=== PATIENT | male | born 1960 | race Caucasian/White ===

== ENCOUNTER → 2016-07-24 | Outpatient (REF) | payer OTHER ==
[2016-07-24 19:35] LABS: ALBUMIN 4.1 GM/DL (3.2-5.2); ALBUMIN/GLOBULIN RATIO 1.28 (1.00-1.93); ALKALINE PHOSPHATASE 48 U/L (45-117); ALT/SGPT 39 U/L (12-78); ANION GAP 8 MEQ/L (8-16); AST/SGOT 19 U/L (15-37); BILIRUBIN,TOTAL 0.6 MG/DL (0.2-1.0); BLOOD UREA NITROGEN 23 MG/DL (7-18); CALCIUM LEVEL 9.6 MG/DL (8.5-10.1); CARBON DIOXIDE LEVEL 28 MEQ/L (21-32); CHLORIDE LEVEL 103 MEQ/L (98-107); CHOLESTEROL LEVEL 189 MG/DL (<200); CREATININE FOR GFR 1.16 MG/DL (0.70-1.30); GLOMERULAR FILTRATION RATE > 60.0 (>56); GLUCOSE, FASTING 187 MG/DL (70-105); POTASSIUM SERUM 4.4 MEQ/L (3.5-5.1); SODIUM LEVEL 139 MEQ/L (136-145); TOTAL PROTEIN 7.3 GM/DL (6.4-8.2); TRIGLYCERIDES LEVEL 375 MG/DL (<150)
== END ==
LOC: M SFHCCLAY 08:52
PROVIDERS: ATTEND Nurse Practitioner
DX: E11.9 Type 2 diabetes mellitus without complications (principal)

== ENCOUNTER → 2016-10-23 | Outpatient (REF) | payer OTHER ==
[2016-10-23 18:12] LABS: ALBUMIN 4.2 GM/DL (3.2-5.2); ALKALINE PHOSPHATASE 40 U/L (45-117); ALT/SGPT 35 U/L (12-78); ANION GAP 10 MEQ/L (8-16); AST/SGOT 21 U/L (15-37); BILIRUBIN,TOTAL 0.5 MG/DL (0.2-1.0); BLOOD UREA NITROGEN 17 MG/DL (7-18); CALCIUM LEVEL 9.1 MG/DL (8.5-10.1); CARBON DIOXIDE LEVEL 28 MEQ/L (21-32); CHLORIDE LEVEL 103 MEQ/L (98-107); CHOLESTEROL LEVEL 167 MG/DL (<200); GLOMERULAR FILTRATION RATE > 60.0 (>56); GLUCOSE, FASTING 133 MG/DL (70-105); POTASSIUM SERUM 4.3 MEQ/L (3.5-5.1); SODIUM LEVEL 141 MEQ/L (136-145); TOTAL PROTEIN 7.2 GM/DL (6.4-8.2); TRIGLYCERIDES LEVEL 311 MG/DL (<150)
== END ==
LOC: M SFHCCLAY 08:37
PROVIDERS: ATTEND Nurse Practitioner
DX: E11.9 Type 2 diabetes mellitus without complications (principal)

== ENCOUNTER → 2017-02-11 | Outpatient (REF) | payer OTHER ==
[2017-02-11 17:25] LABS: ALBUMIN/GLOBULIN RATIO 1.38 (1.00-1.93); ALKALINE PHOSPHATASE 45 U/L (45-117); ALT/SGPT 48 U/L (12-78); ANION GAP 9 MEQ/L (8-16); AST/SGOT 27 U/L (15-37); BILIRUBIN,TOTAL 0.5 MG/DL (0.2-1.0); BLOOD UREA NITROGEN 14 MG/DL (7-18); CARBON DIOXIDE LEVEL 27 MEQ/L (21-32); CHLORIDE LEVEL 105 MEQ/L (98-107); CREATININE FOR GFR 0.85 MG/DL (0.70-1.30); GLOMERULAR FILTRATION RATE > 60.0 (>56); GLUCOSE, FASTING 116 MG/DL (70-105); POTASSIUM SERUM 3.9 MEQ/L (3.5-5.1); SODIUM LEVEL 141 MEQ/L (136-145); TOTAL PROTEIN 6.9 GM/DL (6.4-8.2)
== END ==
LOC: M SFHCCLAY 10:58
PROVIDERS: ATTEND Nurse Practitioner
DX: M54.32 Sciatica, left side (principal)

== ENCOUNTER → 2017-05-19 | Outpatient (REF) | payer OTHER | LOC: M SFHCCLAY 10:46 | PROVIDERS: ATTEND Family Medicine | DX: E11.9 Type 2 diabetes mellitus without complications (principal) ==

== ENCOUNTER → 2019-03-01 | Outpatient (REF) | payer OTHER ==
[2019-03-02 11:58] LABS: HEMOGLOBIN 14.8 g/dl (13.5-17.5); MEAN CORPUSCULAR HEMOGLOBIN 27.9 pg (27.0-33.0); MEAN CORPUSCULAR HGB CONC 34.4 g/dl (32.0-36.5); MEAN CORPUSCULAR VOLUME 81.1 fl (80.0-96.0); PLATELET COUNT, AUTOMATED 154 10^3/uL (150-450)
[2019-03-02 12:26] LABS: ALBUMIN 3.9 GM/DL (3.2-5.2); BILIRUBIN,TOTAL 0.4 MG/DL (0.2-1.0); CALCIUM LEVEL 9.8 MG/DL (8.8-10.2); CREATININE FOR GFR 1.51 MG/DL (0.70-1.30); FREE T4 1.13 NG/DL (0.76-1.46); GLOMERULAR FILTRATION RATE 50.4 (>49); THYROID STIMULATING HORMONE 1.46 uIU/ML (0.358-3.740); TOTAL PROTEIN 7.3 GM/DL (6.4-8.2)
[2019-03-02 13:07] LABS: MALB URINE SIEMENS 67.8 MG/L; MAU/CREAT RATIO 32.9 MCG/MG (0.0-30.0)
[2019-03-02 14:03] LABS: HEMOGLOBIN A1c 13.5 %
== END ==
LOC: M SFHCCLAY 14:03
PROVIDERS: ATTEND Family Medicine
DX: R53.81 Other malaise (principal); R63.4 Abnormal weight loss; E11.9 Type 2 diabetes mellitus without complications; I10 Essential (primary) hypertension; E78.5 Hyperlipidemia, unspecified

== ENCOUNTER → 2019-03-01 | Outpatient (CLI) | payer OTHER ==
--- NOTE | 2019-03-02 08:05 | REP ---
Clinical: Hypertension. Weight loss. Comparison: None . Technique: PA and lateral. Findings: The mediastinum and cardiac silhouette are normal. The lung vincent are clear and without acute consolidation, effusion, or pneumothorax. The skeletal structures are intact and normal. Impression: 1. No acute cardiopulmonary process. Electronically Signed by Nilson Stapleton MD 03/02/2019 07:56 A
== END ==
LOC: M CLY 14:25
PROVIDERS: ATTEND Family Medicine
DX: R53.81 Other malaise (principal); I10 Essential (primary) hypertension; R63.4 Abnormal weight loss

== ENCOUNTER → 2019-06-14 | Outpatient (REF) | payer OTHER ==
[2019-06-14 12:02] LABS: BLOOD UREA NITROGEN 27 MG/DL (7-18); CALCIUM LEVEL 9.3 MG/DL (8.8-10.2); CARBON DIOXIDE LEVEL 26 MEQ/L (21-32); CHLORIDE LEVEL 100 MEQ/L (98-107); CREATININE FOR GFR 1.25 MG/DL (0.70-1.30); GLOMERULAR FILTRATION RATE > 60.0 (>49); GLUCOSE, FASTING 334 MG/DL (70-100); POTASSIUM SERUM 5.1 MEQ/L (3.5-5.1); SODIUM LEVEL 134 MEQ/L (136-145)
== END ==
LOC: M SFHCCLAY 09:14
PROVIDERS: ATTEND Family Medicine
DX: E11.9 Type 2 diabetes mellitus without complications (principal)

== ENCOUNTER → 2019-07-03 | Outpatient (CLI) | payer OTHER ==
[2019-07-03 11:56] LABS: BLOOD UREA NITROGEN 24 MG/DL (7-18); CREATININE FOR GFR 1.27 MG/DL (0.70-1.30); GLOMERULAR FILTRATION RATE > 60.0 (>49)
== END ==
LOC: M LAB 10:12
PROVIDERS: ATTEND Specialist
DX: H90.41 Sensorineural hearing loss, unilateral, right ear, with unrestricted hearing on the contralateral side (principal)

== ENCOUNTER → 2019-07-07 | Outpatient (CLI) | payer OTHER ==
[~2019-07-07] MED LIST: PROHANCE 279.3MG/ML 15ML VIAL (A9576) As Ordered ONE; PROHANCE 279.3MG/ML 5ML VIAL (A9576) As Ordered ONE
--- NOTE | 2019-07-07 13:09 | REP ---
MRI brain/IACs: 07/07/2019. Indication: Hearing loss. Comparison: None. Technique: Multiplanar short and long TR sequences of the brain/IACs were performed without IV Gadolinium. Findings: There are no areas of restricted diffusion. There is no intracranial mass effect or hydrocephalous. The large intracranial flow voids are unremarkable. No significant signal abnormalities are present within the brainstem/brain parenchyma. The cerebellopontine/medullary angles and IACs are unremarkable. The membranous labyrinth are unremarkable bilaterally. Impression: Unremarkable unenhanced MRI of the brain and IACs. Electronically Signed by Juan Ramon Farrell DO 07/07/2019 01:01 P
== END ==
LOC: M RAD 08:38
PROVIDERS: ATTEND Specialist
DX: H90.41 Sensorineural hearing loss, unilateral, right ear, with unrestricted hearing on the contralateral side (principal)

== ENCOUNTER → 2019-10-13 | Outpatient (REF) | payer OTHER ==
[2019-10-13 16:21] LABS: ALT/SGPT 31 U/L (12-78); BILIRUBIN,TOTAL 0.7 MG/DL (0.2-1.0); BLOOD UREA NITROGEN 20 MG/DL (7-18); CALCIUM LEVEL 9.6 MG/DL (8.8-10.2); CARBON DIOXIDE LEVEL 26 MEQ/L (21-32); CHLORIDE LEVEL 102 MEQ/L (98-107); CHOLESTEROL LEVEL 162 MG/DL (<200); CHOLESTEROL RISK RATIO 5.225 (<5); CREATININE FOR GFR 1.04 MG/DL (0.70-1.30); GLOMERULAR FILTRATION RATE > 60.0 (>49); GLUCOSE, FASTING 166 MG/DL (70-100); HDL CHOLESTEROL 31 MG/DL (>40); LDL CHOLESTEROL 79 MG/DL (<100); NON-HDL-C 131 MG/DL; POTASSIUM SERUM 4.3 MEQ/L (3.5-5.1); SODIUM LEVEL 136 MEQ/L (136-145); TOTAL PROTEIN 7.4 GM/DL (6.4-8.2); TRIGLYCERIDES LEVEL 258 MG/DL (<150)
[2019-10-13 16:24] LABS: HEMOGLOBIN A1c 10.9 %
[2019-10-13 16:41] LABS: MAU/CREAT RATIO 118.4 MCG/MG (0.0-30.0)
== END ==
LOC: M SFHCCLAY 12:17
PROVIDERS: ATTEND Family Medicine
DX: I10 Essential (primary) hypertension (principal); E11.9 Type 2 diabetes mellitus without complications; E78.5 Hyperlipidemia, unspecified

== ENCOUNTER → 2022-02-17 | Outpatient (REF) | payer OTHER ==
[2022-02-17 19:13] LABS: APPEARANCE, URINE MANUAL CLEAR (CLEAR); COLOR, URINE MANUAL YELLOW (YELLOW); PROTEIN, URINE MANUAL 2+ mg/dL (NEGATIVE)
[2022-02-17 19:14] LABS: BILIRUBIN, URINE MANUAL NEGATIVE (NEGATIVE); BLOOD URINE MANUAL TRACE (NEGATIVE); GLUCOSE, URINE (UA) MANUAL 4+(1000 MG/DL) mg/dL (NEGATIVE); KETONE, URINE MANUAL NEGATIVE (NEGATIVE); LEUKOCYTE ESTERASE, URINE MAN NEGATIVE (NEGATIVE); NITRITE, URINE MANUAL NEGATIVE (NEGATIVE); UROBILINOGEN, URINE MANUAL NORMAL (NORMAL)
[2022-02-17 19:29] LABS: HEMOGLOBIN A1c 8.6 %
[2022-02-17 19:49] LABS: ALBUMIN 3.8 GM/DL (3.2-5.2); ALT/SGPT 31 U/L (12-78); BILIRUBIN,TOTAL 0.4 MG/DL (0.2-1.0); BLOOD UREA NITROGEN 16 MG/DL (7-18); CALCIUM LEVEL 9.4 MG/DL (8.8-10.2); CARBON DIOXIDE LEVEL 23 MEQ/L (21-32); CHLORIDE LEVEL 106 MEQ/L (98-107); CHOLESTEROL LEVEL 164 MG/DL (<200); CHOLESTEROL RISK RATIO 4.685 (<5); CREATININE FOR GFR 1.02 MG/DL (0.70-1.30); GLOMERULAR FILTRATION RATE > 60.0 (>49); GLUCOSE, FASTING 170 MG/DL (70-100); HDL CHOLESTEROL 35 MG/DL (>40); LDL CHOLESTEROL 84 MG/DL (<100); NON-HDL-C 129 MG/DL; POTASSIUM SERUM 4.5 MEQ/L (3.5-5.1); SODIUM LEVEL 137 MEQ/L (136-145); TRIGLYCERIDES LEVEL 224 MG/DL (<150)
[2022-02-17 19:54] LABS: BACTERIA, URINE NONE SEEN; RBC, URINE 0-1 /hpf (0-3); SQUAMOUS EPITHELIAL CELL URINE SMALL AMOUNT /hpf (SMALL AMT); WBC, URINE 0-1 /hpf (0-3)
[2022-02-17 19:55] LABS: HYALINE CAST, URINE NONE SEEN /lpf (0-1); MUCUS, URINE SMALL AMOUNT (NEGATIVE)
[2022-02-17 20:15] LABS: CREATININE, URINE 87.8 MG/DL; MAU/CREAT RATIO 1020.5 MCG/MG (0.0-30.0)
== END ==
LOC: M SFHCCLAY 10:04
PROVIDERS: ATTEND Family Medicine
DX: E11.65 Type 2 diabetes mellitus with hyperglycemia (principal); I10 Essential (primary) hypertension

== ENCOUNTER → 2022-05-20 | Outpatient (REF) | payer OTHER ==
[2022-05-20 19:51] LABS: MAU/CREAT RATIO 156.3 MCG/MG (0.0-30.0)
[2022-05-20 19:55] LABS: BLOOD UREA NITROGEN 28 MG/DL (9-23); CALCIUM LEVEL 10.4 MG/DL (8.3-10.6); CARBON DIOXIDE LEVEL 27 MMOL/L (20-31); CHLORIDE LEVEL 101 MMOL/L (98-107); CREATININE FOR GFR 1.07 MG/DL (0.70-1.30); GLOMERULAR FILTRATION RATE > 60.0 (>49); GLUCOSE, FASTING 148 MG/DL (74-106); POTASSIUM SERUM 4.4 MMOL/L (3.5-5.1); SODIUM LEVEL 139 MMOL/L (136-145)
[2022-05-20 21:23] LABS: HEMOGLOBIN A1c 9.2 % (4.0-6.0)
== END ==
LOC: M SFHCCLAY 10:22
PROVIDERS: ATTEND Family Medicine
DX: E11.65 Type 2 diabetes mellitus with hyperglycemia (principal); I10 Essential (primary) hypertension

== ENCOUNTER → 2022-09-22 | Outpatient (REF) | payer OTHER ==
[2022-09-23 13:05] LABS: HEMOGLOBIN A1c 6.7 % (4.0-6.0)
== END ==
LOC: M SFHCCLAY 16:12
PROVIDERS: ATTEND Family Medicine
DX: E11.65 Type 2 diabetes mellitus with hyperglycemia (principal)

== ENCOUNTER → 2023-01-20 | Outpatient (REF) | payer OTHER ==
[2023-01-20 17:54] LABS: HEMOGLOBIN A1c 6.7 % (4.0-6.0)
[2023-01-20 17:57] LABS: BLOOD UREA NITROGEN 14 MG/DL (9-23); CALCIUM LEVEL 9.7 MG/DL (8.3-10.6); CARBON DIOXIDE LEVEL 25 MMOL/L (20-31); CHLORIDE LEVEL 103 MMOL/L (98-107); CREATININE FOR GFR 0.87 MG/DL (0.70-1.30); GLOMERULAR FILTRATION RATE > 60.0 (>49); GLUCOSE, FASTING 76 MG/DL (74-106); POTASSIUM SERUM 4.5 MMOL/L (3.5-5.1); SODIUM LEVEL 139 MMOL/L (136-145)
== END ==
LOC: M SFHCCLAY 11:33
PROVIDERS: ATTEND Family Medicine
DX: E11.9 Type 2 diabetes mellitus without complications (principal); Z79.4 Long term (current) use of insulin

== ENCOUNTER → 2023-05-25 | Outpatient (REF) | payer OTHER ==
[2023-05-25 18:02] LABS: ALBUMIN 3.6 G/DL (3.2-5.2); ALKALINE PHOSPHATASE 64 U/L (46-116); ALT/SGPT 31 U/L (7.0-40); AST/SGOT 20 U/L (<34); BILIRUBIN,TOTAL 0.5 MG/DL (0.3-1.2); BLOOD UREA NITROGEN 19 MG/DL (9-23); CALCIUM LEVEL 9.3 MG/DL (8.3-10.6); CARBON DIOXIDE LEVEL 27 MMOL/L (20-31); CHLORIDE LEVEL 103 MMOL/L (98-107); CREATININE FOR GFR 0.87 MG/DL (0.70-1.30); GLOMERULAR FILTRATION RATE > 60.0 (>49); GLUCOSE, FASTING 144 MG/DL (74-106); POTASSIUM SERUM 4.7 MMOL/L (3.5-5.1); SODIUM LEVEL 139 MMOL/L (136-145); TOTAL PROTEIN 6.7 G/DL (5.7-8.2)
[2023-05-25 18:28] LABS: HEMOGLOBIN A1c 7.6 % (4.0-6.0)
== END ==
LOC: M SFHCCLAY 09:42
PROVIDERS: ATTEND Family Medicine
DX: Z79.4 Long term (current) use of insulin (principal); I10 Essential (primary) hypertension; E11.65 Type 2 diabetes mellitus with hyperglycemia

== ENCOUNTER → 2023-06-22 | Outpatient (CLI) | payer OTHER | LOC: M CLY 08:58 | PROVIDERS: ATTEND Physician Assistant | DX: R06.01 Orthopnea (principal); Z95.1 Presence of aortocoronary bypass graft; R91.8 Other nonspecific abnormal finding of lung field ==

== ENCOUNTER → 2023-07-07 | Outpatient (CLI) | payer OTHER | LOC: M CLY 15:23 | PROVIDERS: ATTEND Family Medicine | DX: Z95.1 Presence of aortocoronary bypass graft (principal) ==

== ENCOUNTER → 2023-11-16 | Outpatient (REF) | payer OTHER | LOC: M SFHCCLAY 10:02 | PROVIDERS: ATTEND Family Medicine | DX: E11.9 Type 2 diabetes mellitus without complications (principal) ==

== ENCOUNTER → 2024-03-21 | Outpatient (REF) | payer SELFPAY, OTHER ==
[2024-03-21 19:36] LABS: HEMOGLOBIN A1c 9.3 % (4.0-6.0)
[2024-03-21 19:51] LABS: ALKALINE PHOSPHATASE 69 U/L (46-116); ALT/SGPT 42 U/L (7.0-40); AST/SGOT 26 U/L (<34); BILIRUBIN,TOTAL 0.9 MG/DL (0.3-1.2); BLOOD UREA NITROGEN 27 MG/DL (9-23); CALCIUM LEVEL 10.1 MG/DL (8.3-10.6); CARBON DIOXIDE LEVEL 28 MMOL/L (20-31); CHLORIDE LEVEL 106 MMOL/L (98-107); CREATININE FOR GFR 1.03 MG/DL (0.70-1.30); GLOMERULAR FILTRATION RATE > 60.0 (>49); GLUCOSE, FASTING 115 MG/DL (74-106); POTASSIUM SERUM 4.5 MMOL/L (3.5-5.1); SODIUM LEVEL 139 MMOL/L (136-145); TOTAL PROTEIN 7.2 G/DL (5.7-8.2)
== END ==
LOC: M SFHCCLAY 12:25
PROVIDERS: ATTEND Family Medicine
DX: I10 Essential (primary) hypertension (principal); E11.65 Type 2 diabetes mellitus with hyperglycemia

== ENCOUNTER 2024-04-15 15:57 | Inpatient (IN) | payer MEDICARE, OTHER ==
[~2024-04-15] VITALS: Ht 177.8 cm; Wt 100.7 kg
[2024-04-15] MEDS ORDERED: METO1TAB7 PO (16:18)
[2024-04-15] MEDS ORDERED: INDA1.253 PO (16:18)
[2024-04-15] MEDS ORDERED: METF-1191 PO (16:18)
[2024-04-15] MEDS ORDERED: BASA100I SC (16:18)
[2024-04-15] MEDS ORDERED: ONDA-282 SL (16:18)
[2024-04-15] MEDS ORDERED: FLOM0.4C39 PO (16:18)
[2024-04-15] MEDS ORDERED: HYDR-4517 PO (16:18)
[2024-04-15] MEDS ORDERED: ATOR80TA59 PO (16:18)
[2024-04-15] MEDS ORDERED: ALLO300T2 PO (16:18)
[2024-04-15] MEDS ORDERED: BENA40TA84 PO (16:18)
[2024-04-15 17:14] LABS: BASO % 0.5 % (0.0-1.0); EOS # 0.1 10^3/uL (0.0-0.5); EOS % 0.8 % (0.0-3.0); HEMOGLOBIN 15.8 g/dl (13.5-17.5); LYMPH % 15.9 % (24.0-44.0); MEAN CORPUSCULAR HEMOGLOBIN 28.7 pg (27.0-33.0); MEAN CORPUSCULAR HGB CONC 35.1 g/dl (32.0-36.5); MEAN CORPUSCULAR VOLUME 81.8 fl (80.0-96.0); MONO # 0.6 10^3/uL (0.0-0.8); MONO % 10.2 % (2.0-8.0); NEUTROPHILS # 4.5 10^3/uL (1.5-8.5); NEUTROPHILS % 72.1 % (36.0-66.0); PLATELET COUNT, AUTOMATED 197 10^3/uL (150-450); WHITE BLOOD COUNT 6.2 10^3/uL (4.0-10.0)
[2024-04-15] MEDS: NS 1,000 ML IV ONE ×2 (17:50→21:00)
[2024-04-15] MEDS: ONDANSETRON 4MG 2ML VIAL IV ONE (17:50)
[2024-04-15 17:52] LABS: ALBUMIN 3.9 G/DL (3.2-5.2); BILIRUBIN,DIRECT 0.4 MG/DL (<0.4); BILIRUBIN,TOTAL 1.2 MG/DL (0.3-1.2); TOTAL PROTEIN 7.2 G/DL (5.7-8.2)
[2024-04-15] MEDS: MORPHINE 4 MG/ML 1ML VIAL IV ONE (17:59)
[2024-04-15] MEDS: LIDOCAINE 2% 5ML JELLY UROJET TOP ONE (18:00)
[2024-04-15] MEDS ORDERED: HYDROMORPHONE HCL 0.5 MG/ 0.5 ML SYRINGE IV PRN (20:35)
[2024-04-15] MEDS: cefTRIAXone SOD 1 GM in DEXTROSE 5% (D5W) ADV/MINI-BAG 50 ML IV ONE (20:59)
[2024-04-15] MEDS ORDERED: GLUCAGON INJ 1MG VIAL SC PRN (22:00)
[2024-04-15] MEDS ORDERED: GLUCOSE 4 GM CHEW PO PRN (22:00)
[2024-04-15] MEDS ORDERED: ACETAMINOPHEN 325 MG TAB PO PRN (22:00)
[2024-04-15] MEDS ORDERED: ONDANSETRON 4MG 2ML VIAL IV PRN (22:00)
[2024-04-15] MEDS ORDERED: MAALOX 30 ML SUSP *UDC PO PRN (22:00)
[2024-04-15] MEDS ORDERED: DEXTROSE 50% 50ML SYRINGE IV PRN (22:00)
[2024-04-15] MEDS ORDERED: MORPHINE 2 MG/ML 1ML VIAL IV PRN (22:00)
[2024-04-15] MEDS ORDERED: MOM 30ML SUSPENSION UDC PO PRN (22:00)
[2024-04-15 22:50] VITALS: BP 144/68; TEMP 97.7; O2SAT 93
[2024-04-15] MEDS: NS 1,000 ML IV SCH (23:18)
[2024-04-16 00:18] LABS: INR 1.09; PARTIAL THROMBOPLASTIN TIME 24.8 SECONDS (24.8-34.2); PROTHROMBIN TIME 13.8 SECONDS (12.5-14.5)
[2024-04-16] MEDS ORDERED: ATOR80TA59 PO (00:19)
[2024-04-16] MEDS ORDERED: AMLO1TAB25 PO (00:19)
[2024-04-16] MEDS ORDERED: METF500T13 PO (00:19)
[2024-04-16] MEDS ORDERED: HOME MED LIST COMPLETE! XX SCH (00:20)
[2024-04-16 00:37] LABS: PROCALCITONIN 0.05 ng/ml
[2024-04-16 00:39] LABS: BLOOD UREA NITROGEN 23 MG/DL (9-23); CALCIUM LEVEL 8.5 MG/DL (8.3-10.6); CARBON DIOXIDE LEVEL 27 MMOL/L (20-31); CHLORIDE LEVEL 103 MMOL/L (98-107); CREATININE FOR GFR 1.13 MG/DL (0.70-1.30); GLOMERULAR FILTRATION RATE > 60.0 (>49); GLUCOSE, FASTING 161 MG/DL (74-106); POTASSIUM SERUM 3.5 MMOL/L (3.5-5.1); SODIUM LEVEL 138 MMOL/L (136-145); URIC ACID 7.4 MG/DL (3.7-9.2)
[2024-04-16] MEDS: INSULIN LISPRO (NovoLOG) PER UNIT SC SCH (01:29)
[2024-04-16] MEDS: MAGNESIUM OXIDE 400MG TAB (MAG-OX) PO SCH (01:32)
[2024-04-16] MEDS: KETOROLAC 30 MG/ML 1ML VIAL IV PRN (01:48)
[2024-04-16 04:00] VITALS: BP 120/78; TEMP 97.7; O2SAT 94
[2024-04-16 05:11] LABS: HEMATOCRIT 38.1 % (42.0-52.0); MEAN CORPUSCULAR HEMOGLOBIN 28.7 pg (27.0-33.0); MEAN CORPUSCULAR HGB CONC 34.4 g/dl (32.0-36.5); MEAN CORPUSCULAR VOLUME 83.4 fl (80.0-96.0); PLATELET COUNT, AUTOMATED 161 10^3/uL (150-450); RED BLOOD COUNT 4.57 10^6/uL (4.30-6.10); WHITE BLOOD COUNT 6.7 10^3/uL (4.0-10.0)
[2024-04-16 05:12] LABS: HEMOGLOBIN 13.1 g/dl (13.5-17.5)
[2024-04-16 05:47] LABS: ALBUMIN 3.1 G/DL (3.2-5.2); BILIRUBIN,TOTAL 0.8 MG/DL (0.3-1.2); CALCIUM LEVEL 8.5 MG/DL (8.3-10.6); CREATININE FOR GFR 1.36 MG/DL (0.70-1.30); MAGNESIUM LEVEL 1.6 MG/DL (1.8-2.4); POTASSIUM SERUM 3.5 MMOL/L (3.5-5.1); TOTAL PROTEIN 5.8 G/DL (5.7-8.2)
[2024-04-16] MEDS: TAMSULOSIN 0.4 MG CAP PO SCH (08:00)
[2024-04-16] MEDS: DOCUSATE SODIUM 100MG CAPSULE PO SCH (08:01)
[2024-04-16] MEDS ORDERED: ONDANSETRON 4MG 2ML VIAL IV PRN (09:00)
[2024-04-16] MEDS ORDERED: MEPERIDINE 25 MG/ML 1ML VIAL IV PRN (09:00)
[2024-04-16] MEDS ORDERED: HYDROMORPHONE HCL 0.5 MG/ 0.5 ML SYRINGE IV PRN (09:00)
[2024-04-16] MEDS ORDERED: fentaNYL 100 MCG/2 ML INJECTION IV PRN (09:00)
[2024-04-16] MEDS ORDERED: oxyCODONE 5MG TAB PO PRN (09:00)
[2024-04-16] MEDS ORDERED: LIDOCAINE 2% 100MG/5ML SDV (FOR ANES.) As Ordered ONE (10:16)
[2024-04-16] MEDS ORDERED: ONDANSETRON 4MG 2ML VIAL As Ordered ONE (10:16)
[2024-04-16] MEDS ORDERED: MIDAZOLAM INJ 2MG/2ML VIAL As Ordered ONE (10:16)
[2024-04-16] MEDS ORDERED: fentaNYL 100 MCG/2 ML INJECTION As Ordered ONE (10:16)
[2024-04-16] MEDS ORDERED: dexmedeTOMIDine (4MCG/ML)200MCG/50ML BTL (PRECEDEX) As Ordered ONE (10:16)
[2024-04-16] MEDS ORDERED: ACETAMINOPHEN 1000MG 100ML IV BAG As Ordered ONE (10:16)
[2024-04-16] MEDS ORDERED: propofoL 200 MG/20 ML VIAL As Ordered ONE (10:16)
[2024-04-16] MEDS ORDERED: KETOROLAC 60MG 2ML VIAL As Ordered ONE (10:16)
[2024-04-16] MEDS: LIDOCAINE 2% 5ML JELLY UROJET As Ordered ONE (10:18)
[2024-04-16] MEDS: ISOVUE-300 61% 100ML VIAL As Ordered ONE (10:18)
[2024-04-16 11:00] VITALS: BP 119/72; TEMP 97.7; O2SAT 90
[2024-04-16 11:30] VITALS: BP 150/88; TEMP 98.1; O2SAT 91
[2024-04-16 12:00] VITALS: BP 132/84; TEMP 97.7; O2SAT 90
[2024-04-16 12:38] VITALS: BP 132/82
[2024-04-16] MEDS: allopurinoL 300 MG TAB PO SCH (12:38)
[2024-04-16] MEDS: METOPROLOL SUCC (TopROL XL) 50MG **XL** TAB PO SCH (12:38)
[2024-04-16 13:00] VITALS: BP 135/81; TEMP 97.7; O2SAT 90
[2024-04-16] MEDS ORDERED: cefTRIAXone SOD 1 GM in DEXTROSE 5% (D5W) ADV/MINI-BAG 50 ML IV SCH (21:00)
[2024-04-16] MEDS ORDERED: ATORVASTATIN 20 MG TAB PO SCH (21:00)
== END 2024-04-16 14:45 | disposition home or self-care (01) | DRG 661 ==
LOC: M ED 15:57 → M ED INP 21:59 → M MSPAV 22:54
PROVIDERS: ADMIT Internal Medicine; ATTEND Internal Medicine Nephrology
PROC: 0T768DZ Dilation of Right Ureter with Intraluminal Device, Via Natural or Artificial Opening Endoscopic (ICD-10-PCS; principal; 2024-04-16 09:15)
DX: N13.6 Pyonephrosis (principal); N40.0 Benign prostatic hyperplasia without lower urinary tract symptoms; I25.10 Atherosclerotic heart disease of native coronary artery without angina pectoris; I25.2 Old myocardial infarction; I10 Essential (primary) hypertension; E11.9 Type 2 diabetes mellitus without complications; M10.9 Gout, unspecified; H81.01 Meniere's disease, right ear; E83.42 Hypomagnesemia; M48.02 Spinal stenosis, cervical region; I70.0 Atherosclerosis of aorta; E78.5 Hyperlipidemia, unspecified; M48.061 Spinal stenosis, lumbar region without neurogenic claudication; K57.90 Diverticulosis of intestine, part unspecified, without perforation or abscess without bleeding; K75.3 Granulomatous hepatitis, not elsewhere classified; Z98.41 Cataract extraction status, right eye; Z98.42 Cataract extraction status, left eye; Z95.1 Presence of aortocoronary bypass graft

== ENCOUNTER → 2024-05-04 | Outpatient (CLI) | payer MEDICARE, OTHER ==
[~2024-05-04] MED LIST changes: +ALLO300T2 PO; +AMLO1TAB25 PO; +ASPI325T42 PO; +ATOR80TA59 PO; +BASA100I SC; +BAYE81TA7 PO; +BENA-8 PO; +BENA40TA84 PO; +CHLO125TA PO; +FLOM0.4C39 PO; +HYDR-4517 PO; +INDA1.253 PO; +METF-1191 PO; +METF10004 PO; +METF500T13 PO; +METO1TAB7 PO; +ONDA-282 SL; -PROHANCE 279.3MG/ML 15ML VIAL (A9576) As Ordered ONE; -PROHANCE 279.3MG/ML 5ML VIAL (A9576) As Ordered ONE; +THERTAB52 PO
[2024-05-04 18:07] LABS: APPEARANCE, URINE HAZY (CLEAR); BACTERIA, URINE AUTO NEGATIVE (NEGATIVE); BILIRUBIN, URINE AUTO NEGATIVE (NEGATIVE); BLOOD, URINE BLOOD 3+ (NEGATIVE); COLOR, URINE YELLOW (YELLOW); GLUCOSE, URINE (UA) AUTO 1+ mg/dL (NEGATIVE); KETONE, URINE AUTO NEGATIVE (NEGATIVE); LEUKOCYTE ESTERASE, URINE AUTO 3+ (NEGATIVE); MUCUS, URINE SMALL (NEGATIVE); NITRITE, URINE AUTO NEGATIVE (NEGATIVE); PROTEIN, URINE AUTO 2+ mg/dL (NEGATIVE); RBC, URINE AUTO TNTC /HPF (0-3); SPECIFIC GRAVITY URINE AUTO 1.016 (1.002-1.035); SQUAMOUS EPITHELIAL CELL UR AU 0 /HPF (0-6); UROBILINOGEN, URINE AUTO 0.2 mg/dL (0.0-2.0); WBC, URINE AUTO 31 /HPF (0-3)
== END ==
LOC: M CLY 08:58
PROVIDERS: ATTEND Physician Assistant
DX: Z01.818 Encounter for other preprocedural examination (principal); R91.8 Other nonspecific abnormal finding of lung field

== ENCOUNTER 2024-05-11 09:27 | Day surgery (SDC) | payer MEDICARE, OTHER ==
[~2024-05-11] VITALS: Ht 177.8 cm; Wt 100.2 kg
[2024-05-11] MEDS ORDERED: DEXTROSE 50% 50ML SYRINGE IV PRN (11:25)
[2024-05-11] MEDS ORDERED: INSULIN LISPRO (NovoLOG) PER UNIT SC PRN (11:25)
[2024-05-11] MEDS ORDERED: GLUCOSE 4 GM CHEW PO PRN (11:25)
[2024-05-11] MEDS ORDERED: GLUCAGON INJ 1MG VIAL SC PRN (11:25)
[2024-05-11] MEDS ORDERED: MIDAZOLAM INJ 2MG/2ML VIAL As Ordered ONE (12:09)
[2024-05-11] MEDS ORDERED: ONDANSETRON 4MG 2ML VIAL As Ordered ONE (12:09)
[2024-05-11] MEDS ORDERED: LIDOCAINE 2% 100MG/5ML SDV (FOR ANES.) As Ordered ONE (12:09)
[2024-05-11] MEDS ORDERED: fentaNYL 250 MCG/5 ML INJECTION As Ordered ONE (12:09)
[2024-05-11] MEDS ORDERED: propofoL 200 MG/20 ML VIAL As Ordered ONE (12:09)
[2024-05-11] MEDS ORDERED: ACETAMINOPHEN 1000MG/100ML IV BAG As Ordered ONE (12:10)
[2024-05-11] MEDS: ceFAZolin SOD 2 GM in IV 1 EA IV ONE (12:30)
[2024-05-11] MEDS ORDERED: PHENYLephrine 500MCG 5ML (100MCG/ML) SYRINGE As Ordered ONE (12:59)
[2024-05-11] MEDS ORDERED: ePHEDrine SULFATE 25 MG/5 ML(5MG/ML) SYRINGE As Ordered ONE (12:59)
[2024-05-11] MEDS ORDERED: KETOROLAC 60MG 2ML VIAL As Ordered ONE (13:04)
[2024-05-11] MEDS: ISOVUE-300 61% 100ML VIAL As Ordered ONE (13:49)
[2024-05-11] MEDS ORDERED: fentaNYL 100 MCG/2 ML INJECTION IV PRN (13:55)
[2024-05-11] MEDS ORDERED: diphenhydrAMINE 50MG/ML VIAL IV PRN (13:55)
[2024-05-11] MEDS ORDERED: MEPERIDINE 25 MG/ML 1ML VIAL IV PRN (13:55)
[2024-05-11] MEDS ORDERED: METOCLOPRAMIDE INJ 10MG/2ML VIAL IV PRN (13:55)
[2024-05-11] MEDS ORDERED: MACR100C43 PO (14:01)
[2024-05-11] MEDS ORDERED: PYRI1TAB5 PO (14:01)
[2024-05-11] MEDS ORDERED: OXYB5TAB14 PO (14:01)
[2024-05-11] MEDS: oxyCODONE 5MG TAB PO PRN (15:43)
[2024-05-11] MEDS: ONDANSETRON 4MG 2ML VIAL IV PRN (15:44)
[2024-05-11] MEDS: oxyBUTYnin 5 MG TAB PO ONE (16:00)
[2024-05-11] MEDS: KETOROLAC 30 MG/ML 1ML VIAL IV STA (16:33)
[2024-05-11] MEDS: METOCLOPRAMIDE INJ 10MG/2ML VIAL IV PRN (16:33)
[2024-05-11 17:41] VITALS: BP 137/82; TEMP 97.6; O2SAT 97
== END 2024-05-11 17:45 | disposition home or self-care (01) ==
LOC: M SDC 09:27
PROVIDERS: ATTEND Urology
DX: N20.0 Calculus of kidney (principal)

== ENCOUNTER 2024-05-13 17:30 | Inpatient (IN) | payer MEDICARE, OTHER ==
[~2024-05-13] VITALS: Ht 177.8 cm; Wt 97.0 kg
[~2024-05-13 17:30] MED LIST changes: +MACR100C43 PO; +OXYB5TAB14 PO; +PYRI1TAB5 PO
[2024-05-13 17:55] LABS: BASO % 0.4 % (0.0-1.0); EOS # 0.1 10^3/uL (0.0-0.5); EOS % 1.1 % (0.0-3.0); HEMATOCRIT 41.8 % (42.0-52.0); HEMOGLOBIN 14.8 g/dl (13.5-17.5); LYMPH # 1.5 10^3/uL (1.5-5.0); MEAN CORPUSCULAR HEMOGLOBIN 28.7 pg (27.0-33.0); MEAN CORPUSCULAR HGB CONC 35.4 g/dl (32.0-36.5); MONO # 0.7 10^3/uL (0.0-0.8); MONO % 8.8 % (2.0-8.0); NEUTROPHILS % 71.1 % (36.0-66.0); PLATELET COUNT, AUTOMATED 216 10^3/uL (150-450); RED BLOOD COUNT 5.16 10^6/uL (4.30-6.10); WHITE BLOOD COUNT 8.4 10^3/uL (4.0-10.0)
[2024-05-13 18:19] LABS: LIPASE 32 U/L (12-53)
[2024-05-13 18:21] LABS: ALBUMIN 3.5 G/DL (3.2-5.2); ALKALINE PHOSPHATASE 70 U/L (40-129); ALT/SGPT 17 U/L (7.0-40); AST/SGOT 11 U/L (<34); BILIRUBIN,DIRECT 0.3 MG/DL (<0.4); BILIRUBIN,TOTAL 0.8 MG/DL (0.3-1.2); BLOOD UREA NITROGEN 31 MG/DL (9-23); CALCIUM LEVEL 9.5 MG/DL (8.3-10.6); CARBON DIOXIDE LEVEL 21 MMOL/L (20-31); CHLORIDE LEVEL 101 MMOL/L (98-107); CREATININE FOR GFR 1.13 MG/DL (0.70-1.30); GLOMERULAR FILTRATION RATE > 60.0 (>49); GLUCOSE, FASTING 319 MG/DL (74-106); SODIUM LEVEL 135 MMOL/L (136-145); TOTAL PROTEIN 6.8 G/DL (5.7-8.2)
[2024-05-13] MEDS ORDERED: ISOVUE-370 76% 100ML VIAL As Ordered ONE (18:26)
[2024-05-13] MEDS: MORPHINE 4 MG/ML 1ML VIAL IV ONE ×2 (18:33→20:50)
[2024-05-13] MEDS: ONDANSETRON 4MG 2ML VIAL IV ONE (20:49)
[2024-05-13] MEDS ORDERED: MAALOX 30 ML SUSP *UDC PO PRN (22:40)
[2024-05-13] MEDS ORDERED: ACETAMINOPHEN 325 MG TAB PO PRN (22:40)
[2024-05-13] MEDS ORDERED: MOM 30ML SUSPENSION UDC PO PRN (22:40)
[2024-05-13] MEDS ORDERED: PHEN-501 PO (23:54)
[2024-05-13] MEDS ORDERED: METF-838 PO (23:54)
[2024-05-13] MEDS ORDERED: NITR100C2 PO (23:54)
[2024-05-13] MEDS ORDERED: OXYB5TAB14 PO (23:54)
[2024-05-13] MEDS ORDERED: HOME MED LIST COMPLETE! XX SCH (23:55)
[2024-05-14 00:40] VITALS: BP 97/69; TEMP 98.1; O2SAT 92
[2024-05-14] MEDS ORDERED: KETOROLAC 30 MG/ML 1ML VIAL IV PRN (03:20)
[2024-05-14] MEDS: oxyBUTYnin 5 MG TAB PO PRN ×2 (03:24→20:38)
[2024-05-14] MEDS: MORPHINE 2 MG/ML 1ML VIAL IV PRN (03:25)
[2024-05-14] MEDS ORDERED: MORPHINE 2 MG/ML 1ML VIAL IV PRN (03:25)
[2024-05-14 04:00] VITALS: BP 127/84; TEMP 98.6; O2SAT 96
[2024-05-14] MEDS: ACETAMINOPHEN 325 MG TAB PO PRN (07:29)
[2024-05-14] MEDS: TAMSULOSIN 0.4 MG CAP PO SCH ×2 (09:00→11:13)
[2024-05-14] MEDS ORDERED: GLUCAGON INJ 1MG VIAL SC PRN (10:10)
[2024-05-14] MEDS ORDERED: PHENAZOPYRIDINE 100 MG TAB PO PRN (10:10)
[2024-05-14] MEDS ORDERED: DEXTROSE 50% 50ML SYRINGE IV PRN (10:10)
[2024-05-14] MEDS ORDERED: GLUCOSE 4 GM CHEW PO PRN (10:10)
[2024-05-14 10:38] LABS: HEMATOCRIT 39.9 % (42.0-52.0); HEMOGLOBIN 13.5 g/dl (13.5-17.5); MEAN CORPUSCULAR HEMOGLOBIN 28.2 pg (27.0-33.0); MEAN CORPUSCULAR HGB CONC 33.8 g/dl (32.0-36.5); MEAN CORPUSCULAR VOLUME 83.5 fl (80.0-96.0); PLATELET COUNT, AUTOMATED 181 10^3/uL (150-450); RED BLOOD COUNT 4.78 10^6/uL (4.30-6.10); WHITE BLOOD COUNT 8.1 10^3/uL (4.0-10.0)
[2024-05-14 11:09] LABS: CALCIUM LEVEL 8.7 MG/DL (8.3-10.6); CREATININE FOR GFR 1.43 MG/DL (0.70-1.30); GLOMERULAR FILTRATION RATE 52.8 (>49)
[2024-05-14] MEDS: LEVEMIR (INSULIN DETEMIR) 1 UNITS/0.01ML SC SCH (11:09)
[2024-05-14] MEDS: METOPROLOL SUCC (TopROL XL) 50MG **XL** TAB PO SCH (11:10)
[2024-05-14] MEDS: CHLORTHALIDONE 25 MG TAB PO SCH (11:10)
[2024-05-14] MEDS: BENAZEPRIL 20 MG TAB PO SCH (11:10)
[2024-05-14] MEDS: MULTIVITAMINS/MINERALS THERAP 1 TAB PO SCH (11:13)
[2024-05-14] MEDS: ONDANSETRON 4MG ORAL DISINTEGRATING TAB PO SCH (11:13)
[2024-05-14] MEDS: allopurinoL 300 MG TAB PO SCH (11:14)
[2024-05-14] MEDS: DICLOFENAC EPOLAMINE 1.3% PATCH TOP SCH (11:15)
[2024-05-14] MEDS: LIDOCAINE 5% (LIDODERM) PATCH TD SCH (11:16)
[2024-05-14] MEDS: ACETAMINOPHEN 500 MG TAB PO SCH (11:20)
[2024-05-14] MEDS: IBUPROFEN 800 MG TAB PO SCH (11:21)
[2024-05-14 12:00] VITALS: BP 115/71; TEMP 97.9; O2SAT 95
[2024-05-14] MEDS: INSULIN LISPRO (NovoLOG) PER UNIT SC SCH ×2 (12:14→21:00)
[2024-05-14] MEDS: LEVEMIR (INSULIN DETEMIR) 1 UNITS/0.01ML SC ONE (14:31)
[2024-05-14 19:23] VITALS: BP 112/72; TEMP 98.1; O2SAT 96
[2024-05-14] MEDS: ATORVASTATIN 20 MG TAB PO SCH (20:38)
[2024-05-14] MEDS: oxyCODONE 5MG TAB PO PRN (23:37)
[2024-05-15] VITALS (7 sets, daily range): BP systolic 112–169; BP diastolic 72–102; TEMP 97.6–98.2; O2SAT 90–94
[2024-05-15 06:00] LABS: HEMATOCRIT 38.2 % (42.0-52.0); HEMOGLOBIN 13.2 g/dl (13.5-17.5); MEAN CORPUSCULAR HEMOGLOBIN 28.8 pg (27.0-33.0); MEAN CORPUSCULAR HGB CONC 34.6 g/dl (32.0-36.5); MEAN CORPUSCULAR VOLUME 83.4 fl (80.0-96.0); PLATELET COUNT, AUTOMATED 178 10^3/uL (150-450); RED BLOOD COUNT 4.58 10^6/uL (4.30-6.10); WHITE BLOOD COUNT 7.2 10^3/uL (4.0-10.0)
[2024-05-15 06:24] LABS: CALCIUM LEVEL 8.6 MG/DL (8.3-10.6); CREATININE FOR GFR 1.75 MG/DL (0.70-1.30); GLOMERULAR FILTRATION RATE 41.9 (>49); POTASSIUM SERUM 3.6 MMOL/L (3.5-5.1)
[2024-05-15] MEDS: LR 1,000 ML IV ONE (07:02)
[2024-05-15] MEDS: LEVEMIR (INSULIN DETEMIR) 1 UNITS/0.01ML SC SCH (09:25)
[2024-05-15] MEDS: oxyCODONE 5MG TAB PO PRN (10:25)
[2024-05-15] MEDS: LR 1,000 ML IV SCH (10:29)
[2024-05-15] MEDS ORDERED: LIDOCAINE 2% 100MG/5ML SDV (FOR ANES.) As Ordered ONE (13:23)
[2024-05-15] MEDS ORDERED: propofoL 200 MG/20 ML VIAL As Ordered ONE (13:23)
[2024-05-15] MEDS ORDERED: ONDANSETRON 4MG 2ML VIAL As Ordered ONE (13:23)
[2024-05-15] MEDS ORDERED: MIDAZOLAM INJ 2MG/2ML VIAL As Ordered ONE (13:27)
[2024-05-15] MEDS ORDERED: fentaNYL 100 MCG/2 ML INJECTION As Ordered ONE (13:27)
[2024-05-15] MEDS ORDERED: MEPERIDINE 25 MG/ML 1ML VIAL IV PRN (14:55)
[2024-05-15] MEDS ORDERED: fentaNYL 100 MCG/2 ML INJECTION IV PRN (14:55)
[2024-05-15] MEDS ORDERED: HYDROmorphone HCL 2MG/ML 1ML VIAL As Ordered ONE (14:59)
[2024-05-15] MEDS: HYDROMORPHONE HCL 0.5 MG/ 0.5 ML SYRINGE IV PRN (15:01)
[2024-05-15] MEDS: ONDANSETRON 4MG 2ML VIAL IV PRN (15:05)
[2024-05-15] MEDS: CIPROFLOXACIN 500MG TABLET PO ONE (16:26)
[2024-05-15] MEDS: ONDANSETRON 4MG 2ML VIAL IV ONE (20:10)
[2024-05-16] VITALS: BP 165/100; TEMP 98.1; O2SAT 91
[2024-05-16 00:22] VITALS: BP 180/92
[2024-05-16] MEDS: ONDANSETRON 4MG ORAL DISINTEGRATING TAB PO PRN (01:57)
[2024-05-16 04:00] VITALS: BP 162/89; TEMP 97.9; O2SAT 94
[2024-05-16 06:06] LABS: HEMOGLOBIN 13.9 g/dl (13.5-17.5); MEAN CORPUSCULAR HEMOGLOBIN 28.8 pg (27.0-33.0); MEAN CORPUSCULAR HGB CONC 34.8 g/dl (32.0-36.5); PLATELET COUNT, AUTOMATED 193 10^3/uL (150-450); RED BLOOD COUNT 4.82 10^6/uL (4.30-6.10); WHITE BLOOD COUNT 9.8 10^3/uL (4.0-10.0)
[2024-05-16 06:33] LABS: CREATININE FOR GFR 1.47 MG/DL (0.70-1.30); GLOMERULAR FILTRATION RATE 51.2 (>49); POTASSIUM SERUM 3.9 MMOL/L (3.5-5.1)
[2024-05-16 08:00] VITALS: BP 166/94; TEMP 97.6; O2SAT 98
[2024-05-16 08:17] VITALS: BP 152/74
[2024-05-16] MEDS ORDERED: ONDA-282 PO (10:53)
[2024-05-16] MEDS ORDERED: LIDO5TD TD (10:53)
[2024-05-16 12:00] VITALS: BP 167/94; TEMP 98.1; O2SAT 97
== END 2024-05-16 13:00 | disposition home or self-care (01) | DRG 699 ==
LOC: M ED 17:30 → EDBD 17:30 → M ED INP 22:36 → M MS5PR 05-14 00:31
PROVIDERS: ADMIT Student in an Organized Health Care Education/Training Program; ATTEND Student in an Organized Health Care Education/Training Program
PROC: 0TP98DZ Removal of Intraluminal Device from Ureter, Via Natural or Artificial Opening Endoscopic (ICD-10-PCS; principal; 2024-05-15 12:30)
DX: T83.122A Displacement of indwelling ureteral stent, initial encounter (principal); N17.9 Acute kidney failure, unspecified; N13.30 Unspecified hydronephrosis; I25.10 Atherosclerotic heart disease of native coronary artery without angina pectoris; I25.2 Old myocardial infarction; E78.5 Hyperlipidemia, unspecified; I10 Essential (primary) hypertension; E11.9 Type 2 diabetes mellitus without complications; M10.9 Gout, unspecified; G89.18 Other acute postprocedural pain; K86.89 Other specified diseases of pancreas; N23 Unspecified renal colic; R31.9 Hematuria, unspecified; K76.0 Fatty (change of) liver, not elsewhere classified; N40.0 Benign prostatic hyperplasia without lower urinary tract symptoms; I70.0 Atherosclerosis of aorta; M48.061 Spinal stenosis, lumbar region without neurogenic claudication; Z98.41 Cataract extraction status, right eye; Z98.42 Cataract extraction status, left eye; Z79.4 Long term (current) use of insulin; Z79.84 Long term (current) use of oral hypoglycemic drugs; Z79.899 Other long term (current) drug therapy; Z95.5 Presence of coronary angioplasty implant and graft

== ENCOUNTER 2024-05-19 09:46 | Emergency (ER) | payer MEDICARE, OTHER ==
[~2024-05-19] VITALS: Ht 177.8 cm; Wt 96.5 kg
[~2024-05-19 09:46] MED LIST changes: +LIDO5TD TD; +METF-838 PO; +NITR100C2 PO; +ONDA-282 PO; +PHEN-501 PO
[2024-05-19 10:36] LABS: BASO % 0.1 % (0.0-1.0); EOS % 0.1 % (0.0-3.0); HEMATOCRIT 41.5 % (42.0-52.0); HEMOGLOBIN 14.2 g/dl (13.5-17.5); LYMPH # 0.6 10^3/uL (1.5-5.0); LYMPH % 4.9 % (24.0-44.0); MEAN CORPUSCULAR HEMOGLOBIN 28.5 pg (27.0-33.0); MEAN CORPUSCULAR HGB CONC 34.2 g/dl (32.0-36.5); MEAN CORPUSCULAR VOLUME 83.3 fl (80.0-96.0); MONO # 0.9 10^3/uL (0.0-0.8); MONO % 6.7 % (2.0-8.0); NEUTROPHILS # 11.3 10^3/uL (1.5-8.5); PLATELET COUNT, AUTOMATED 191 10^3/uL (150-450); RED BLOOD COUNT 4.98 10^6/uL (4.30-6.10)
[2024-05-19] MEDS: NS 1,000 ML IV ONE (10:44)
[2024-05-19 10:50] LABS: VENOUS BASE EXCESS 2.1 (-2.0-2.0); VENOUS HCO3 25.7 MMOL/L (23.0-27.0); VENOUS PARTIAL PRESSURE CO2 37.1 mmHg (38.0-50.0); VENOUS PARTIAL PRESSURE O2 80.5 mmHg (30.0-50.0); VENOUS PH 7.459 UNITS (7.330-7.430); VENOUS STANDARD HCO3 26.3 MMOL/L; VENOUS TOTAL CO2 26.9 MMOL/L (24.0-28.0)
[2024-05-19 10:57] LABS: CK-MB VALUE MASS 24.2 NG/ML (<3.6)
[2024-05-19 10:58] LABS: ETHYL ALCOHOL (ETHANOL) 0.005 % (0.000-0.010)
[2024-05-19 10:59] LABS: CPK CREATINE PHOSPHOKINASE 609 U/L (46-171); MB/CK RELATIVE INDEX 3.97 (< OR =4); SALICYLATE LEVEL < 3.0 MG/DL (<30)
[2024-05-19 11:01] LABS: THYROID STIMULATING HORMONE 1.304 uIU/ML (0.55-4.78)
[2024-05-19 11:07] LABS: ALBUMIN 2.7 G/DL (3.2-5.2); ALKALINE PHOSPHATASE 62 U/L (40-129); ALT/SGPT 47 U/L (7.0-40); AST/SGOT 121 U/L (<34); BILIRUBIN,DIRECT 0.4 MG/DL (<0.4); BILIRUBIN,TOTAL 0.8 MG/DL (0.3-1.2); BLOOD UREA NITROGEN 48 MG/DL (9-23); CALCIUM LEVEL 8.4 MG/DL (8.3-10.6); CARBON DIOXIDE LEVEL 26 MMOL/L (20-31); CHLORIDE LEVEL 92 MMOL/L (98-107); CREATININE FOR GFR 1.87 MG/DL (0.70-1.30); GLOMERULAR FILTRATION RATE 38.8 (>49); GLUCOSE, FASTING 468 MG/DL (74-106); POTASSIUM SERUM 3.7 MMOL/L (3.5-5.1); SODIUM LEVEL 130 MMOL/L (136-145); TOTAL PROTEIN 6.2 G/DL (5.7-8.2)
[2024-05-19] MEDS: LIDOCAINE 2% 5ML JELLY UROJET TOP ONE (11:30)
[2024-05-19] MEDS: NS 1,900 ML in IV 1 EA IV ONE (11:45)
[2024-05-19 12:03] LABS: CK-MB VALUE MASS 23.3 NG/ML (<3.6)
[2024-05-19 12:04] LABS: MB/CK RELATIVE INDEX 4.42 (< OR =4)
[2024-05-19] MEDS: PIPERACILLIN/TAZOBACTAM SOD 4.5 GM in DEXTROSE 5% (D5W) ADV/MINI-BAG 50 ML IV ONE (12:39)
[2024-05-19] MEDS: HumuLIN R (REGULAR) INSULIN (NovoLIN R) **100U/ML** PER UNIT IV ONE (12:43)
[2024-05-19] MEDS: ASPIRIN 81MG CHEW TABLET PO ONE (12:44)
[2024-05-19 13:36] LABS: PROCALCITONIN 0.17 ng/ml
[2024-05-19] MEDS ORDERED: HEPARIN 25,000 UNITS/250 ML D5W BAG (100 UNITS/ML) As Ordered ONE (14:09)
[2024-05-19 14:14] LABS: INR 1.32; PARTIAL THROMBOPLASTIN TIME 29.7 SECONDS (24.8-34.2); PROTHROMBIN TIME 16.7 SECONDS (12.5-14.5)
[2024-05-19] MEDS: HEPARIN SOD (PORCINE) 5000UNITS/ML 1ML VIAL/SYRINGE IV ONE (14:15)
[2024-05-19] MEDS: HEPARIN DRIP 25,000 UNITS in IV 1 EA IV SCH (14:18)
[2024-05-19 15:06] VITALS: BP 118/72; TEMP 98.1; O2SAT 92
== END 2024-05-19 15:07 | disposition short-term general hospital (02) ==
LOC: M ED 09:46
DX: I24.9 Acute ischemic heart disease, unspecified (principal); R65.20 Severe sepsis without septic shock; N20.1 Calculus of ureter; E11.9 Type 2 diabetes mellitus without complications; I10 Essential (primary) hypertension; E78.5 Hyperlipidemia, unspecified; I25.2 Old myocardial infarction; Z95.1 Presence of aortocoronary bypass graft; Z79.899 Other long term (current) drug therapy
CPT/HCPCS: 36415; 51701; 70450; 71045; 74176; 80047; 80048; 80076; 80143; 81001; 82077; 82140; 82550; 82553; 82803; 83605; 84145; 84443; 84484; 85025; 85610; 85730; 87040; 87077; 87086; 87154; 87186; 87486; 87581; 87633; 87798; 93005; 93041; 94760; 96361; 96365; 96375; 99285; J1815; J2543

== ENCOUNTER 2024-05-30 02:04 | Inpatient (IN) | payer MEDICARE, OTHER ==
[~2024-05-30] VITALS: Ht 177.8 cm; Wt 93.0 kg
[2024-05-30 02:55] LABS: BASO % 0.2 % (0.0-1.0); EOS # 0.1 10^3/uL (0.0-0.5); EOS % 0.6 % (0.0-3.0); HEMATOCRIT 33.8 % (42.0-52.0); HEMOGLOBIN 11.4 g/dl (13.5-17.5); LYMPH # 0.3 10^3/uL (1.5-5.0); LYMPH % 3.3 % (24.0-44.0); MEAN CORPUSCULAR HEMOGLOBIN 28.4 pg (27.0-33.0); MEAN CORPUSCULAR HGB CONC 33.7 g/dl (32.0-36.5); MEAN CORPUSCULAR VOLUME 84.3 fl (80.0-96.0); MONO # 0.5 10^3/uL (0.0-0.8); MONO % 5.4 % (2.0-8.0); NEUTROPHILS # 7.5 10^3/uL (1.5-8.5); NEUTROPHILS % 89.9 % (36.0-66.0); PLATELET COUNT, AUTOMATED 199 10^3/uL (150-450); RED BLOOD COUNT 4.01 10^6/uL (4.30-6.10); WHITE BLOOD COUNT 8.4 10^3/uL (4.0-10.0)
[2024-05-30 03:24] LABS: ALBUMIN 2.3 G/DL (3.2-5.2); ALKALINE PHOSPHATASE 84 U/L (40-129); ALT/SGPT 66 U/L (7.0-40); AST/SGOT 46 U/L (<34); BILIRUBIN,DIRECT 0.5 MG/DL (<0.4); BILIRUBIN,TOTAL 1.1 MG/DL (0.3-1.2); BLOOD UREA NITROGEN 17 MG/DL (9-23); CALCIUM LEVEL 7.5 MG/DL (8.3-10.6); CARBON DIOXIDE LEVEL 23 MMOL/L (20-31); CHLORIDE LEVEL 98 MMOL/L (98-107); CK-MB VALUE MASS < 1.0 NG/ML (<3.6); GLOMERULAR FILTRATION RATE > 60.0 (>49); GLUCOSE, FASTING 246 MG/DL (74-106); POTASSIUM SERUM 4.6 MMOL/L (3.5-5.1); SODIUM LEVEL 130 MMOL/L (136-145); TOTAL PROTEIN 6.1 G/DL (5.7-8.2)
[2024-05-30 03:26] LABS: THYROID STIMULATING HORMONE 2.408 uIU/ML (0.55-4.78)
[2024-05-30] MEDS ORDERED: ISOVUE-370 76% 100ML VIAL As Ordered ONE (03:38)
[2024-05-30] MEDS: ACETAMINOPHEN 325 MG TAB PO ONE (03:38)
[2024-05-30] MEDS: NS 1,000 ML IV ONE (03:39)
[2024-05-30 04:29] LABS: CPK CREATINE PHOSPHOKINASE 64 U/L (46-171); MB/CK RELATIVE INDEX 1.56 (< OR =4)
[2024-05-30 05:18] LABS: CK-MB VALUE MASS < 1.0 NG/ML (<3.6)
[2024-05-30 05:19] LABS: CPK CREATINE PHOSPHOKINASE 51 U/L (46-171); MB/CK RELATIVE INDEX 1.96 (< OR =4)
[2024-05-30] MEDS: PIPERACILLIN/TAZOBACTAM SOD 4.5 GM in DEXTROSE 5% (D5W) ADV/MINI-BAG 50 ML IV ONE (05:51)
[2024-05-30] MEDS ORDERED: MAALOX 30 ML SUSP *UDC PO PRN (06:20)
[2024-05-30] MEDS ORDERED: MOM 30ML SUSPENSION UDC PO PRN (06:20)
[2024-05-30] MEDS ORDERED: ONDA-282 PO (06:37)
[2024-05-30] MEDS ORDERED: CLOP75TA2 PO (06:37)
[2024-05-30] MEDS ORDERED: ASPI81CH33 PO (06:38)
[2024-05-30] MEDS ORDERED: HOME MED LIST COMPLETE! XX SCH (06:40)
[2024-05-30] MEDS ORDERED: ACETAMINOPHEN 325 MG TAB PO PRN (07:00)
[2024-05-30] MEDS ORDERED: NS 1,000 ML IV SCH (07:25)
[2024-05-30] MEDS ORDERED: GLUCOSE 4 GM CHEW PO PRN (07:30)
[2024-05-30] MEDS ORDERED: GLUCAGON INJ 1MG VIAL SC PRN (07:30)
[2024-05-30] MEDS: INSULIN LISPRO (NovoLOG) PER UNIT SC SCH ×2 (07:30→20:11)
[2024-05-30] MEDS ORDERED: PHENAZOPYRIDINE 100 MG TAB PO PRN (07:30)
[2024-05-30] MEDS ORDERED: DEXTROSE 50% 50ML SYRINGE IV PRN (07:30)
[2024-05-30] MEDS ORDERED: oxyBUTYnin 5 MG TAB PO PRN (07:30)
[2024-05-30] MEDS ORDERED: ONDANSETRON 4MG ORAL DISINTEGRATING TAB PO PRN (07:30)
[2024-05-30 08:47] VITALS: BP 124/74; TEMP 98.2; O2SAT 98
[2024-05-30] MEDS: allopurinoL 300 MG TAB PO SCH (09:00)
[2024-05-30] MEDS ORDERED: ENOXAPARIN 40MG/0.4ML SYRINGE (J1650 PER 10MG) SC SCH (09:00)
[2024-05-30] MEDS ORDERED: LEVEMIR (INSULIN DETEMIR) 1 UNITS/0.01ML SC SCH (09:00)
[2024-05-30] MEDS ORDERED: CLOPIDOGREL 75 MG TAB PO SCH (09:00)
[2024-05-30] MEDS ORDERED: ASPIRIN 81MG CHEW TABLET PO SCH (09:00)
[2024-05-30] MEDS: MULTIVITAMINS/MINERALS THERAP 1 TAB PO SCH (10:42)
[2024-05-30] MEDS: LEVEMIR (INSULIN DETEMIR) 1 UNITS/0.01ML SC SCH (10:43)
[2024-05-30 10:52] LABS: PROCALCITONIN 0.25 ng/ml
[2024-05-30 12:00] VITALS: BP 172/102; TEMP 103.6; O2SAT 97
[2024-05-30] MEDS: ACETAMINOPHEN *IV* 1,000 MG in IV 1 EA IV PRN (12:32)
[2024-05-30] MEDS: CLOPIDOGREL 75 MG TAB PO SCH (12:32)
[2024-05-30] MEDS: ASPIRIN 81MG CHEW TABLET PO SCH (12:32)
[2024-05-30] MEDS: PIPERACILLIN/TAZOBACTAM SOD 3.375 GM in DEXTROSE 5% (D5W) ADV/MINI-BAG 50 ML IV SCH (13:01)
[2024-05-30 13:41] VITALS: TEMP 103.5
[2024-05-30] MEDS ORDERED: KETOROLAC 30 MG/ML 1ML VIAL IV ONE (13:50)
[2024-05-30] MEDS: IBUPROFEN 800 MG TAB PO ONE (14:51)
[2024-05-30] MEDS: ENOXAPARIN 40MG/0.4ML SYRINGE (J1650 PER 10MG) SC SCH (14:54)
[2024-05-30 14:59] VITALS: BP 110/60; TEMP 101; O2SAT 95
[2024-05-30] MEDS: PIPERACILLIN/TAZOBACTAM SOD 4.5 GM in DEXTROSE 5% (D5W) ADV/MINI-BAG 50 ML IV SCH (17:51)
[2024-05-30 19:49] VITALS: BP 103/62; TEMP 97.7; O2SAT 95
[2024-05-30] MEDS: ATORVASTATIN 20 MG TAB PO SCH (20:11)
[2024-05-30 23:13] VITALS: BP 102/69; TEMP 96.7; O2SAT 97
[2024-05-31 03:28] VITALS: BP 119/71; TEMP 97.5; O2SAT 95
[2024-05-31 05:14] LABS: HEMOGLOBIN 11.7 g/dl (13.5-17.5); MEAN CORPUSCULAR HEMOGLOBIN 28.4 pg (27.0-33.0); MEAN CORPUSCULAR HGB CONC 33.4 g/dl (32.0-36.5); PLATELET COUNT, AUTOMATED 197 10^3/uL (150-450); RED BLOOD COUNT 4.12 10^6/uL (4.30-6.10); WHITE BLOOD COUNT 3.6 10^3/uL (4.0-10.0)
[2024-05-31 05:42] LABS: ALBUMIN 2.2 G/DL (3.2-5.2); ALKALINE PHOSPHATASE 80 U/L (40-129); ALT/SGPT 54 U/L (7.0-40); AST/SGOT 32 U/L (<34); BILIRUBIN,TOTAL 0.8 MG/DL (0.3-1.2); BLOOD UREA NITROGEN 16 MG/DL (9-23); CALCIUM LEVEL 8.4 MG/DL (8.3-10.6); CARBON DIOXIDE LEVEL 26 MMOL/L (20-31); CHLORIDE LEVEL 104 MMOL/L (98-107); GLOMERULAR FILTRATION RATE > 60.0 (>49); GLUCOSE, FASTING 118 MG/DL (74-106); POTASSIUM SERUM 4.1 MMOL/L (3.5-5.1); SODIUM LEVEL 138 MMOL/L (136-145); TOTAL PROTEIN 5.8 G/DL (5.7-8.2)
[2024-05-31 07:52] VITALS: BP 131/77; TEMP 98.3; O2SAT 98
[2024-05-31 07:54] LABS: BASO % 0.6 % (0.0-1.0); EOS # 0.1 10^3/uL (0.0-0.5); EOS % 1.8 % (0.0-3.0); LYMPH # 0.4 10^3/uL (1.5-5.0); LYMPH % 10.2 % (24.0-44.0); MONO # 0.3 10^3/uL (0.0-0.8); MONO % 7.3 % (2.0-8.0); NEUTROPHILS # 2.7 10^3/uL (1.5-8.5); NEUTROPHILS % 79.5 % (36.0-66.0)
[2024-05-31] MEDS: ERTAPENEM SODIUM 1 GM in NS MINI-BAG PLUS 50 ML IV SCH (08:10)
[2024-05-31] MEDS: METOPROLOL SUCC (TopROL XL) 50MG **XL** TAB PO SCH (09:00)
[2024-05-31] MEDS: ENTRESTO 24-26MG TABLET (SACUBITRIL/VALSARTAN) PO SCH (09:00)
[2024-05-31 12:00] VITALS: BP 108/57; TEMP 102.9; TEMP 99.2; O2SAT 99
[2024-05-31 16:00] VITALS: BP 105/69; TEMP 97.7; O2SAT 96
[2024-05-31 20:54] VITALS: BP 163/91; TEMP 101.5; O2SAT 97
[2024-06-01 00:15] VITALS: BP 124/70; TEMP 99.8; O2SAT 98
[2024-06-01 03:34] VITALS: BP 111/62; TEMP 97.2; O2SAT 95
[2024-06-01 07:42] VITALS: BP 130/80; TEMP 98.5; O2SAT 96
[2024-06-01 08:00] LABS: BASO % 0.4 % (0.0-1.0); EOS % 0.8 % (0.0-3.0); HEMATOCRIT 35.1 % (42.0-52.0); HEMOGLOBIN 11.7 g/dl (13.5-17.5); LYMPH # 0.4 10^3/uL (1.5-5.0); LYMPH % 16.4 % (24.0-44.0); MEAN CORPUSCULAR HGB CONC 33.3 g/dl (32.0-36.5); MONO # 0.3 10^3/uL (0.0-0.8); MONO % 10.3 % (2.0-8.0); NEUTROPHILS # 1.8 10^3/uL (1.5-8.5); NEUTROPHILS % 70.2 % (36.0-66.0); PLATELET COUNT, AUTOMATED 210 10^3/uL (150-450); RED BLOOD COUNT 4.18 10^6/uL (4.30-6.10); WHITE BLOOD COUNT 2.6 10^3/uL (4.0-10.0)
[2024-06-01 08:17] LABS: BLOOD UREA NITROGEN 10 MG/DL (9-23); CARBON DIOXIDE LEVEL 25 MMOL/L (20-31); CHLORIDE LEVEL 101 MMOL/L (98-107); CREATININE FOR GFR 0.78 MG/DL (0.70-1.30); GLOMERULAR FILTRATION RATE > 60.0 (>49); GLUCOSE, FASTING 160 MG/DL (74-106); SODIUM LEVEL 135 MMOL/L (136-145)
[2024-06-01] MEDS ORDERED: DAPAGLIFLOZIN PROPANEDIOL 10MG TABLET (FARXIGA) PO SCH (09:00)
[2024-06-01 16:38] VITALS: BP 126/74; TEMP 98.3; O2SAT 94
[2024-06-02 00:26] VITALS: BP 112/76; TEMP 98.8; O2SAT 95
[2024-06-02 05:56] LABS: EOS # 0.1 10^3/uL (0.0-0.5); EOS % 2.1 % (0.0-3.0); HEMATOCRIT 36.1 % (42.0-52.0); LYMPH # 0.8 10^3/uL (1.5-5.0); LYMPH % 28.1 % (24.0-44.0); MEAN CORPUSCULAR HEMOGLOBIN 27.6 pg (27.0-33.0); MEAN CORPUSCULAR HGB CONC 33.2 g/dl (32.0-36.5); MONO # 0.3 10^3/uL (0.0-0.8); MONO % 11.5 % (2.0-8.0); NEUTROPHILS # 1.6 10^3/uL (1.5-8.5); PLATELET COUNT, AUTOMATED 211 10^3/uL (150-450); RED BLOOD COUNT 4.35 10^6/uL (4.30-6.10); WHITE BLOOD COUNT 2.9 10^3/uL (4.0-10.0)
[2024-06-02 06:16] LABS: BLOOD UREA NITROGEN 11 MG/DL (9-23); CALCIUM LEVEL 8.4 MG/DL (8.3-10.6); CARBON DIOXIDE LEVEL 26 MMOL/L (20-31); CHLORIDE LEVEL 102 MMOL/L (98-107); GLOMERULAR FILTRATION RATE > 60.0 (>49); GLUCOSE, FASTING 139 MG/DL (74-106); POTASSIUM SERUM 4.2 MMOL/L (3.5-5.1); SODIUM LEVEL 136 MMOL/L (136-145)
[2024-06-02 07:37] VITALS: BP 104/61; TEMP 97.1; O2SAT 95
[2024-06-02 07:50] VITALS: BP 104/61
[2024-06-02] MEDS ORDERED: ENTR1TAB PO (08:19)
[2024-06-02] MEDS: SPIRONOLACTONE 12.5MG PER 1/2 TABLET PO SCH (08:40)
[2024-06-02] MEDS ORDERED: BACT800T5 PO ×2 (11:41→11:44)
== END 2024-06-02 13:17 | disposition home or self-care (01) | DRG 871 ==
LOC: M ED 02:04 → EDBD 02:04 → M ED INP 06:18 → EEVIPCON 06:18 → M PCU 08:31
PROVIDERS: ADMIT Student in an Organized Health Care Education/Training Program; ATTEND Student in an Organized Health Care Education/Training Program
PROC: B246ZZZ Ultrasonography of Right and Left Heart (ICD-10-PCS; principal; 2024-05-30)
DX: A41.51 Sepsis due to Escherichia coli [E. coli] (principal); G93.41 Metabolic encephalopathy; I50.22 Chronic systolic (congestive) heart failure; E87.1 Hypo-osmolality and hyponatremia; N39.0 Urinary tract infection, site not specified; I25.10 Atherosclerotic heart disease of native coronary artery without angina pectoris; E78.5 Hyperlipidemia, unspecified; I11.0 Hypertensive heart disease with heart failure; E11.9 Type 2 diabetes mellitus without complications; I25.2 Old myocardial infarction; D64.9 Anemia, unspecified; M10.9 Gout, unspecified; N40.0 Benign prostatic hyperplasia without lower urinary tract symptoms; H81.01 Meniere's disease, right ear; I25.5 Ischemic cardiomyopathy; M48.061 Spinal stenosis, lumbar region without neurogenic claudication; I70.0 Atherosclerosis of aorta; E83.51 Hypocalcemia; Z79.82 Long term (current) use of aspirin; Z86.73 Personal history of transient ischemic attack (TIA), and cerebral infarction without residual deficits; Z79.4 Long term (current) use of insulin; Z79.899 Other long term (current) drug therapy

== ENCOUNTER → 2024-07-10 | Outpatient (REF) | payer MEDICARE ==
[~2024-07-10] MED LIST changes: +ASPI81CH33 PO; +BACT800T5 PO; +CLOP75TA2 PO; +ENTR1TAB PO
[2024-07-10 19:14] LABS: BASO % 0.6 % (0.0-1.0); EOS # 0.1 10^3/uL (0.0-0.5); EOS % 2.1 % (0.0-3.0); HEMATOCRIT 39.4 % (42.0-52.0); HEMOGLOBIN 12.5 g/dl (13.5-17.5); LYMPH # 1.4 10^3/uL (1.5-5.0); LYMPH % 19.9 % (24.0-44.0); MEAN CORPUSCULAR HEMOGLOBIN 27.1 pg (27.0-33.0); MEAN CORPUSCULAR HGB CONC 31.7 g/dl (32.0-36.5); MEAN CORPUSCULAR VOLUME 85.3 fl (80.0-96.0); MONO # 0.5 10^3/uL (0.0-0.8); MONO % 6.6 % (2.0-8.0); NEUTROPHILS # 4.8 10^3/uL (1.5-8.5); NEUTROPHILS % 70.1 % (36.0-66.0); PLATELET COUNT, AUTOMATED 303 10^3/uL (150-450); RED BLOOD COUNT 4.62 10^6/uL (4.30-6.10); WHITE BLOOD COUNT 6.8 10^3/uL (4.0-10.0)
[2024-07-10 19:41] LABS: ALBUMIN 3.2 G/DL (3.2-5.2); ALKALINE PHOSPHATASE 81 U/L (40-129); ALT/SGPT 20 U/L (7.0-40); AST/SGOT 16 U/L (<34); BILIRUBIN,TOTAL 0.5 MG/DL (0.3-1.2); BLOOD UREA NITROGEN 15 MG/DL (9-23); CALCIUM LEVEL 9.2 MG/DL (8.3-10.6); CARBON DIOXIDE LEVEL 26 MMOL/L (20-31); CHLORIDE LEVEL 105 MMOL/L (98-107); CHOLESTEROL LEVEL 129 MG/DL (<200); CHOLESTEROL RISK RATIO 4.86 (<5); CREATININE FOR GFR 0.79 MG/DL (0.70-1.30); GLOMERULAR FILTRATION RATE > 60.0 (>49); GLUCOSE, FASTING 97 MG/DL (74-106); HDL CHOLESTEROL 26.5 MG/DL (>40); LDL CHOLESTEROL 78.1 MG/DL (<100); MAGNESIUM LEVEL 1.1 MG/DL (1.8-2.4); NON-HDL-C 102.5 MG/DL; POTASSIUM SERUM 4.5 MMOL/L (3.5-5.1); SODIUM LEVEL 142 MMOL/L (136-145); THYROID STIMULATING HORMONE 1.739 uIU/ML (0.55-4.78); TOTAL PROTEIN 6.9 G/DL (5.7-8.2); TRIGLYCERIDES LEVEL 122 MG/DL (<150)
[2024-07-10 19:42] LABS: FREE T4 1.37 NG/DL (0.89-1.76)
[2024-07-10 19:56] LABS: HEMOGLOBIN A1c 7.2 % (4.0-6.0)
== END ==
LOC: M SFHCCLAY 10:49
PROVIDERS: ATTEND Nurse Practitioner Family
DX: I49.2 Junctional premature depolarization (principal); I21.4 Non-ST elevation (NSTEMI) myocardial infarction; I10 Essential (primary) hypertension; E78.5 Hyperlipidemia, unspecified; Z86.73 Personal history of transient ischemic attack (TIA), and cerebral infarction without residual deficits; E11.65 Type 2 diabetes mellitus with hyperglycemia; Z95.1 Presence of aortocoronary bypass graft

== ENCOUNTER → 2024-07-17 | Outpatient (CLI) | payer MEDICARE ==
[~2024-07-17] VITALS: Ht 177.8 cm; Wt 91.8 kg
[2024-07-17] MEDS: MAG SULF 1GM/100ML (MAG RUN) IV SCH (08:27)
[2024-07-17 08:28] VITALS: BP 131/84; O2SAT 98
[2024-07-17 09:30] VITALS: BP 115/76; O2SAT 96
[2024-07-17 11:00] VITALS: BP 116/73; O2SAT 97
== END ==
LOC: M INFU 08:16
PROVIDERS: ATTEND Nurse Practitioner Family
DX: E83.42 Hypomagnesemia (principal)
CPT/HCPCS: 96365; 96366; J3475

== ENCOUNTER → 2024-07-18 | Outpatient (REF) | payer MEDICARE | LOC: M SFHCCLAY 13:51 | PROVIDERS: ATTEND Nurse Practitioner Family | DX: E83.42 Hypomagnesemia (principal) ==

== ENCOUNTER → 2024-07-27 | Outpatient (REF) | payer MEDICARE | LOC: M SFHCCLAY 12:07 | PROVIDERS: ATTEND Nurse Practitioner Family | DX: E83.42 Hypomagnesemia (principal) ==

== ENCOUNTER → 2024-08-29 | Outpatient (REF) | payer MEDICARE | LOC: M SFHCCLAY 11:46 | PROVIDERS: ATTEND Nurse Practitioner Family | DX: E83.42 Hypomagnesemia (principal) ==

== ENCOUNTER → 2024-11-01 | Outpatient (REF) | payer MEDICARE ==
[~2024-11-01] MED LIST changes: -FLOM0.4C39 PO; +TAMS-18 PO
[2024-11-01 18:02] LABS: BASO % 0.8 % (0.0-1.0); EOS # 0.1 10^3/uL (0.0-0.5); EOS % 1.7 % (0.0-3.0); HEMATOCRIT 37.3 % (42.0-52.0); HEMOGLOBIN 12.1 g/dl (13.5-17.5); LYMPH # 0.6 10^3/uL (1.5-5.0); LYMPH % 12.9 % (24.0-44.0); MEAN CORPUSCULAR HEMOGLOBIN 25.7 pg (27.0-33.0); MEAN CORPUSCULAR HGB CONC 32.4 g/dl (32.0-36.5); MEAN CORPUSCULAR VOLUME 79.2 fl (80.0-96.0); MONO # 0.3 10^3/uL (0.0-0.8); MONO % 6.1 % (2.0-8.0); NEUTROPHILS # 3.7 10^3/uL (1.5-8.5); NEUTROPHILS % 78.1 % (36.0-66.0); PLATELET COUNT, AUTOMATED 145 10^3/uL (150-450); RED BLOOD COUNT 4.71 10^6/uL (4.30-6.10); WHITE BLOOD COUNT 4.7 10^3/uL (4.0-10.0)
[2024-11-01 18:17] LABS: FREE T4 1.4 NG/DL (0.89-1.76); THYROID STIMULATING HORMONE 2.704 uIU/ML (0.55-4.78)
[2024-11-01 18:19] LABS: ALBUMIN 3.6 G/DL (3.2-5.2); BILIRUBIN,TOTAL 0.9 MG/DL (0.3-1.2); CALCIUM LEVEL 10.3 MG/DL (8.3-10.6); CHOLESTEROL RISK RATIO 2.79 (<5); CREATININE FOR GFR 1.02 MG/DL (0.70-1.30); GLOMERULAR FILTRATION RATE 81.1 (>49); HDL CHOLESTEROL 35.1 MG/DL (>40); LDL CHOLESTEROL 45.5 MG/DL (<100); MAGNESIUM LEVEL 1.5 MG/DL (1.8-2.4); NON-HDL-C 62.9 MG/DL; POTASSIUM SERUM 4.5 MMOL/L (3.5-5.1); TOTAL PROTEIN 6.8 G/DL (5.7-8.2)
== END ==
LOC: M SFHCCLAY 13:15
PROVIDERS: ATTEND Nurse Practitioner Family
DX: E83.42 Hypomagnesemia (principal); Z95.1 Presence of aortocoronary bypass graft; I21.4 Non-ST elevation (NSTEMI) myocardial infarction; E11.9 Type 2 diabetes mellitus without complications; I10 Essential (primary) hypertension; E78.5 Hyperlipidemia, unspecified; Z86.73 Personal history of transient ischemic attack (TIA), and cerebral infarction without residual deficits; I50.9 Heart failure, unspecified; K59.00 Constipation, unspecified

== ENCOUNTER 2024-11-08 12:57 | Observation (INO) | payer MEDICARE ==
[~2024-11-08] VITALS: Ht 177.8 cm; Wt 99.8 kg
[2024-11-08 13:55] LABS: BASO % 0.4 % (0.0-1.0); EOS % 0.4 % (0.0-3.0); HEMATOCRIT 34.4 % (42.0-52.0); HEMOGLOBIN 11.1 g/dl (13.5-17.5); LYMPH # 0.4 10^3/uL (1.5-5.0); MEAN CORPUSCULAR HEMOGLOBIN 25.2 pg (27.0-33.0); MEAN CORPUSCULAR HGB CONC 32.3 g/dl (32.0-36.5); MEAN CORPUSCULAR VOLUME 78.2 fl (80.0-96.0); MONO # 0.3 10^3/uL (0.0-0.8); MONO % 5.9 % (2.0-8.0); NEUTROPHILS # 4.1 10^3/uL (1.5-8.5); NEUTROPHILS % 84.1 % (36.0-66.0); PLATELET COUNT, AUTOMATED 132 10^3/uL (150-450); WHITE BLOOD COUNT 4.9 10^3/uL (4.0-10.0)
[2024-11-08 14:24] LABS: THYROID STIMULATING HORMONE 3.385 uIU/ML (0.55-4.78)
[2024-11-08 14:25] LABS: FREE T4 1.56 NG/DL (0.89-1.76)
[2024-11-08 14:27] LABS: BLOOD UREA NITROGEN 16 MG/DL (9-23); CALCIUM LEVEL 8.7 MG/DL (8.3-10.6); CARBON DIOXIDE LEVEL 30 MMOL/L (20-31); CHLORIDE LEVEL 101 MMOL/L (98-107); CREATININE FOR GFR 0.92 MG/DL (0.70-1.30); GLOMERULAR FILTRATION RATE > 90.0 (>49); GLUCOSE, FASTING 54 MG/DL (74-106); MAGNESIUM LEVEL 1.8 MG/DL (1.8-2.4); POTASSIUM SERUM 3.9 MMOL/L (3.5-5.1); SODIUM LEVEL 142 MMOL/L (136-145)
[2024-11-08 15:02] LABS: ALBUMIN 3.2 G/DL (3.2-5.2); ALKALINE PHOSPHATASE 95 U/L (40-129); ALT/SGPT 27 U/L (7.0-40); AST/SGOT 33 U/L (<34); BILIRUBIN,DIRECT 0.4 MG/DL (<0.4); BILIRUBIN,TOTAL 0.9 MG/DL (0.3-1.2); TOTAL PROTEIN 6.2 G/DL (5.7-8.2)
[2024-11-08] MEDS ORDERED: ISOVUE-370 76% 100ML VIAL As Ordered ONE (15:06)
[2024-11-08] MEDS ORDERED: ENTR1TAB PO (16:56)
[2024-11-08] MEDS ORDERED: MAGN200T PO (16:56)
[2024-11-08] MEDS ORDERED: JARD1TAB PO (16:56)
[2024-11-08] MEDS ORDERED: HOME MED LIST COMPLETE! XX SCH (17:00)
[2024-11-08] MEDS ORDERED: GLUCOSE 4 GM CHEW PO PRN (18:10)
[2024-11-08] MEDS ORDERED: DEXTROSE 50% 50ML SYRINGE IV PRN (18:10)
[2024-11-08] MEDS ORDERED: GLUCAGON INJ 1MG VIAL SC PRN (18:10)
[2024-11-08] MEDS: FUROSEMIDE 100MG/10ML VIAL IV ONE (18:37)
[2024-11-08 19:01] LABS: HEMOGLOBIN A1c 5.7 % (4.0-6.0)
[2024-11-08 22:02] VITALS: BP 114/84; TEMP 97.6; O2SAT 97
[2024-11-08 23:48] VITALS: BP 113/82; TEMP 98; O2SAT 99
[2024-11-09 03:37] VITALS: BP 115/81; TEMP 97.8; O2SAT 96
[2024-11-09 06:05] LABS: BASO % 0.6 % (0.0-1.0); EOS # 0.1 10^3/uL (0.0-0.5); EOS % 3.1 % (0.0-3.0); HEMATOCRIT 34.2 % (42.0-52.0); HEMOGLOBIN 11.1 g/dl (13.5-17.5); LYMPH # 0.7 10^3/uL (1.5-5.0); LYMPH % 21.9 % (24.0-44.0); MEAN CORPUSCULAR HEMOGLOBIN 25.7 pg (27.0-33.0); MEAN CORPUSCULAR HGB CONC 32.5 g/dl (32.0-36.5); MEAN CORPUSCULAR VOLUME 79.2 fl (80.0-96.0); MONO # 0.3 10^3/uL (0.0-0.8); MONO % 9.7 % (2.0-8.0); NEUTROPHILS # 2.1 10^3/uL (1.5-8.5); NEUTROPHILS % 64.4 % (36.0-66.0); PLATELET COUNT, AUTOMATED 123 10^3/uL (150-450); RED BLOOD COUNT 4.32 10^6/uL (4.30-6.10); WHITE BLOOD COUNT 3.2 10^3/uL (4.0-10.0)
[2024-11-09 06:26] LABS: CALCIUM LEVEL 8.9 MG/DL (8.3-10.6); CREATININE FOR GFR 0.99 MG/DL (0.70-1.30)
[2024-11-09 08:24] VITALS: BP 113/67; TEMP 97.9; O2SAT 96
[2024-11-09] MEDS: METOPROLOL SUCC. 25MG *XL* TAB PO SCH (08:27)
[2024-11-09] MEDS: FUROSEMIDE 40MG/4ML VIAL IV SCH (08:27)
[2024-11-09] MEDS: CLOPIDOGREL 75 MG TAB PO SCH (08:27)
[2024-11-09] MEDS: ASPIRIN 81MG CHEW TABLET PO SCH (08:27)
[2024-11-09] MEDS: ATORVASTATIN 20 MG TAB PO SCH (08:27)
[2024-11-09] MEDS: allopurinoL 300 MG TAB PO SCH (08:28)
[2024-11-09] MEDS ORDERED: METOPROLOL SUCC. 50MG *XL* TAB PO SCH (09:00)
[2024-11-09] MEDS: SENOKOT S TAB PO SCH (11:50)
[2024-11-09 12:30] VITALS: BP 131/65; TEMP 97.2; O2SAT 97
[2024-11-09 16:14] VITALS: BP 111/58; TEMP 97.7; O2SAT 96
[2024-11-09] MEDS: MIRALAX *UNIT DOSE* 17GM PACKET PO PRN (17:48)
[2024-11-09 19:59] VITALS: BP 130/85; TEMP 97.5; O2SAT 98
[2024-11-09 23:33] VITALS: BP 115/82; TEMP 99.2; O2SAT 96
[2024-11-10 03:47] VITALS: BP 130/82; TEMP 97.7; O2SAT 97
[2024-11-10 05:26] LABS: EOS # 0.1 10^3/uL (0.0-0.5); EOS % 4.7 % (0.0-3.0); HEMATOCRIT 32.9 % (42.0-52.0); HEMOGLOBIN 10.9 g/dl (13.5-17.5); LYMPH # 0.7 10^3/uL (1.5-5.0); LYMPH % 23.9 % (24.0-44.0); MEAN CORPUSCULAR HEMOGLOBIN 25.9 pg (27.0-33.0); MEAN CORPUSCULAR HGB CONC 33.1 g/dl (32.0-36.5); MEAN CORPUSCULAR VOLUME 78.1 fl (80.0-96.0); MONO # 0.3 10^3/uL (0.0-0.8); MONO % 9.4 % (2.0-8.0); NEUTROPHILS # 1.8 10^3/uL (1.5-8.5); NEUTROPHILS % 60.7 % (36.0-66.0); PLATELET COUNT, AUTOMATED 126 10^3/uL (150-450); RED BLOOD COUNT 4.21 10^6/uL (4.30-6.10)
[2024-11-10 05:42] LABS: BLOOD UREA NITROGEN 14 MG/DL (9-23); CALCIUM LEVEL 8.5 MG/DL (8.3-10.6); CARBON DIOXIDE LEVEL 31 MMOL/L (20-31); CHLORIDE LEVEL 103 MMOL/L (98-107); CREATININE FOR GFR 0.93 MG/DL (0.70-1.30); GLOMERULAR FILTRATION RATE > 90.0 (>49); GLUCOSE, FASTING 179 MG/DL (74-106); POTASSIUM SERUM 3.8 MMOL/L (3.5-5.1); SODIUM LEVEL 143 MMOL/L (136-145)
[2024-11-10 08:14] VITALS: BP 132/86; TEMP 98; O2SAT 97
[2024-11-10 09:25] VITALS: BP 132/86
[2024-11-10] MEDS ORDERED: TORS20TA2 PO (10:00)
[2024-11-10] MEDS ORDERED: DOCU8.6T PO (10:00)
== END 2024-11-10 12:30 | disposition home or self-care (01) ==
LOC: M ED 12:57 → EDBD 12:57 → M ED INP 12:58 → M PCU 21:55
PROVIDERS: ADMIT Internal Medicine Nephrology; ATTEND Internal Medicine Nephrology
DX: E11.649 Type 2 diabetes mellitus with hypoglycemia without coma (principal); G93.41 Metabolic encephalopathy; I50.22 Chronic systolic (congestive) heart failure; I11.0 Hypertensive heart disease with heart failure; I25.2 Old myocardial infarction; Z95.1 Presence of aortocoronary bypass graft; I49.3 Ventricular premature depolarization; J90 Pleural effusion, not elsewhere classified; J98.11 Atelectasis; R53.83 Other fatigue; R53.1 Weakness; R18.8 Other ascites; I25.5 Ischemic cardiomyopathy; E78.5 Hyperlipidemia, unspecified; Z86.73 Personal history of transient ischemic attack (TIA), and cerebral infarction without residual deficits; M10.9 Gout, unspecified; N40.0 Benign prostatic hyperplasia without lower urinary tract symptoms; H81.01 Meniere's disease, right ear; K57.90 Diverticulosis of intestine, part unspecified, without perforation or abscess without bleeding; Z87.442 Personal history of urinary calculi; Z96.0 Presence of urogenital implants; K75.3 Granulomatous hepatitis, not elsewhere classified; D73.89 Other diseases of spleen; Z95.811 Presence of heart assist device; Z98.890 Other specified postprocedural states; Z83.3 Family history of diabetes mellitus; Z82.0 Family history of epilepsy and other diseases of the nervous system; Z83.2 Family history of diseases of the blood and blood-forming organs and certain disorders involving the immune mechanism; Z82.49 Family history of ischemic heart disease and other diseases of the circulatory system; Z79.899 Other long term (current) drug therapy; Z79.82 Long term (current) use of aspirin; Z79.02 Long term (current) use of antithrombotics/antiplatelets; Z79.84 Long term (current) use of oral hypoglycemic drugs
CPT/HCPCS: 36415; 70450; 71045; 71275; 72125; 74177; 80048; 80076; 83036; 83605; 83735; 84439; 84443; 85025; 87040; 93005; 93041; 94760; 96374; 96376; 99285; J1938; Q9967

== ENCOUNTER → 2025-01-31 | Outpatient (REF) | payer MEDICARE ==
[~2025-01-31] MED LIST changes: +DOCU8.6T PO; +JARD1TAB PO; +MAGN200T PO; +TORS20TA2 PO
[2025-01-31 18:35] LABS: BASO # 0.0 10^3/uL (0.0-0.2); BASO % 0.8 % (0.0-1.0); EOS # 0.1 10^3/uL (0.0-0.5); EOS % 2.3 % (0.0-3.0); LYMPH # 0.7 10^3/uL (1.5-5.0); LYMPH % 18.5 % (24.0-44.0); MONO # 0.3 10^3/uL (0.0-0.8); MONO % 7.7 % (2.0-8.0); NEUTROPHILS # 2.8 10^3/uL (1.5-8.5); NEUTROPHILS % 70.4 % (36.0-66.0); PLATELET COUNT, AUTOMATED 136 10^3/uL (150-450)
[2025-01-31 18:43] LABS: ALT/SGPT 30.0 U/L (7.0-40); AST/SGOT 29.0 U/L (<34); CALCIUM LEVEL 9.1 MG/DL (8.3-10.6); CARBON DIOXIDE LEVEL 25.0 MMOL/L (20-31); CHLORIDE LEVEL 105.0 MMOL/L (98-107); CREATININE FOR GFR 0.95 MG/DL (0.70-1.30); GLOMERULAR FILTRATION RATE 88.3 (>49); MAGNESIUM LEVEL 1.8 MG/DL (1.8-2.4); POTASSIUM SERUM 4.3 MMOL/L (3.5-5.1); PSA SCREENING 1.62 NG/ML (< 4.00); SODIUM LEVEL 142.0 MMOL/L (136-145)
[2025-01-31 19:05] LABS: ESTIMATED AVERAGE GLUCOSE 177.0 MG/DL (60-110)
== END ==
LOC: M SFHCCLAY 13:38
PROVIDERS: ATTEND Nurse Practitioner Family
DX: E83.42 Hypomagnesemia (principal); Z95.1 Presence of aortocoronary bypass graft; I21.4 Non-ST elevation (NSTEMI) myocardial infarction; E11.9 Type 2 diabetes mellitus without complications; I10 Essential (primary) hypertension; E78.5 Hyperlipidemia, unspecified; I50.9 Heart failure, unspecified; K59.00 Constipation, unspecified; Z12.5 Encounter for screening for malignant neoplasm of prostate
CPT/HCPCS: 80053; 83036; 83735; 85025; G0103